=== PATIENT | female | born 1985 | race Caucasian/White ===

== ENCOUNTER 2025-02-27 23:17 | Inpatient (IN) | payer BC ==
[2025-02-27] MEDS ORDERED: MAGNESIUM HYDROXIDE 2,400 MG/30 ML CUP PO PRN (23:30)
[2025-02-27] MEDS ORDERED: LORazepam 2 MG/ML INJ IM PRN (23:30)
[2025-02-27] MEDS ORDERED: MAG HYDROX/AL HYDROX/SIMETH 355 ML BOTTLE PO PRN (23:30)
[2025-02-27] MEDS ORDERED: ACETAMINOPHEN TAB 325 MG TAB PO PRN (23:30)
[2025-02-27] MEDS ORDERED: HALOPERIDOL LACTATE 5 MG/ML 1 ML VIAL IM PRN (23:30)
[2025-02-27] MEDS ORDERED: haloperidoL 5 MG TAB PO PRN (23:30)
[2025-02-28] MEDS: LORazepam 1 MG TAB PO PRN (00:21)
[2025-02-28] MEDS: IBUPROFEN 600 MG TAB PO PRN (00:22)
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
[2025-02-28] MEDS: QUEtiapine 25 MG TAB PO STA (12:15)
[2025-02-28] MEDS: DULoxetine HCL 20 MG CAPSULE.DR PO SCH (12:15)
[2025-02-28] MEDS: QUEtiapine 50 MG TAB PO SCH (21:16)
--- NOTE | 2025-03-01 12:39 | P.PN ---
Progress Note - Text Progress Note Date: 03/01/25 Interval history: Patient was seen today for psychiatric follow-up. She claims that she is doing a bit better today,. Be less labile today, not tearful, endorsing improvement in anxiety today. Has been taking her medications did state that she felt fairly tired yesterday after taking the Seroquel. Claims that she is agreeable to continuing taking medications slept fairly last night about 5 or 6 hours. Claims that she has been in contact with her family however was fairly guarded about what they are talking well. She was also requesting to be placed back on her Fioricet and [place] and claims that she has the bottles in her possession, they will be sent to the pharmacy for clarification. Claims that her appetite is fair. Hygiene and grooming improving. Denying any auditory visual hallucinations denying any suicidal homicidal ideations intent or plan. MENTAL STATUS EXAM: General Appearance: Patient appears to be short in stature, thin wearing hospital gown, several within the wounds on her face and neck, stated age is alert, attempts to cooperate, more directable. Patient appears to have improving hygiene and grooming. Behavior: Patient is seated without any agitated behavior. Appears to more cooperative today. Jesse. Speech: Patient's speech is fluent and nonpressured. Hesitant soft tone, improving mildly Mood/Affect: Patient reports their mood is minimizing depression anxiety, improving mildly, affect is congruent and constricted. Suicidality/Homicidality: Patient denies having any homicidal ideation intent or plan. Denies any suicidal ideations intent or plan Perceptions: Patient denies any visual hallucinations and denies any auditory hallucinations Though content/process: More logical today. Goal oriented. Fairly concrete at times. Memory and concentration: AOX3, grossly intact for the purposes of this session. Judgment and insight: Poor, improving mildly IMPRESSIONS: Psychosis unspecified Generalized anxiety disorder PLAN: -Patient is admitted under involuntary status to MHU for stabilization of psychiatric symptoms and safety. Patient has not signed adult voluntary form and has not signed medication consent and is placed in patient's chart. -Medications : Seroquel 50 mg nightly for mood stabilization/psychosis/insomnia, increase Cymbalta 30 mg daily for mood/anxiety. -Ativan and Haldol PRN for agitation/aggression -NRT -not needed as patient does not smoke -SW on board for discharge planning. Encourage patient to participate in groups to work on coping skills. Will await deferral and court date.
[2025-03-01] MEDS: HYDROcodone/APAP 10-325MG 1 EACH TAB PO SCH (17:26)
[2025-03-01] MEDS: tiZANidine 4 MG TAB PO SCH (21:42)
[2025-03-01] MEDS: NORTRIPTYLINE 25 MG CAP PO SCH (21:43)
[2025-03-01] MEDS: Dextroamphetamine/Amphetamine [Adderall] 30 MG Tablet PO SCH (21:45)
[2025-03-02] MEDS: DULoxetine HCL 30 MG CAPSULE.DR PO SCH (08:19)
--- NOTE | 2025-03-02 13:54 | P.PN ---
Progress Note - Text Progress Note Date: 03/02/25 Interval history: Patient was seen today for psychiatric follow-up. She claims that she is doing a bit better today. She appears to be more cooperative today, not tearful. Claims that her anxiety mood is improving. She was restarted back on her pain medications and also her headache medications. We did speak about her Adderall being decreased down to just 1 tablet in the morning as it may be affecting her sleep. Claims that she slept fairly last night wants remain on the same dose to be a occasions. She was fairly focused on discharge, claims that she did speak to an electric motor tester this morning. Denies any issues with appetite. Hygiene and grooming improving. Denying any auditory visual hallucinations denying any suicidal homicidal ideations intent or plan. MENTAL STATUS EXAM: General Appearance: Patient appears to be short in stature, thin wearing hospital gown, several within the wounds on her face and neck, stated age is alert, attempts to cooperate, more directable. Patient appears to have improving hygiene and grooming. Behavior: Patient is seated without any agitated behavior. Appears to more cooperative today. [place]. Improving mildly Speech: Patient's speech is fluent and nonpressured, improving mildly Mood/Affect: Patient reports their mood is improving mildly, affect is congruent and constricted. Suicidality/Homicidality: Patient denies having any homicidal ideation intent or plan. Denies any suicidal ideations intent or plan Perceptions: Patient denies any visual hallucinations and denies any auditory hallucinations Though content/process: More logical today. Goal oriented. Fairly concrete at times. Memory and concentration: AOX3, grossly intact for the purposes of this session. Judgment and insight: Poor, improving mildly IMPRESSIONS: Psychosis unspecified Generalized anxiety disorder hx of adhd PLAN: -Patient is admitted under involuntary status to MHU for stabilization of psychiatric symptoms and safety. Patient has not signed adult voluntary form and has not signed medication consent and is placed in patient's chart. -Medications : Seroquel 50 mg nightly for mood stabilization/psychosis/insomnia, Cymbalta 30 mg daily for mood/anxiety. resumed pts adderall at a lower dose, 1 tab in the am for adhd. -Ativan and Haldol PRN for agitation/aggression -NRT -not needed as patient does not smoke -SW on board for discharge planning. Encourage patient to participate in groups to work on coping skills. Will await deferral and court date
[2025-03-02] MEDS ORDERED: cloNIDine HCL 0.1 MG TAB PO PRN (17:32)
--- NOTE | 2025-03-02 17:51 | P.MDCNMH ---
History of Present Illness H&P Date: 03/02/25 Chief Complaint: Medical evaluation, management 39-year-old woman with medical history of hypertension presented for mental health evaluation. Patient was noted to be hypertensive on vitals check. She reports some chronic numbness of her bilateral hands as a consequence of C5-C7 disc herniation, but otherwise able to ambulate without difficulty, has not noticed any additional weakness of extremities. Did not endorse headache, nausea, vomiting, abdominal pain, dysuria, chest pain, palpitations. Patient is hemodynamically stable, afebrile, blood pressure is 173/86, heart rate 123, 98% on room air. No labs to review, no imaging to review. Gen: In NAD, non-toxic HEENT: normocephalic, atraumatic, hearing acuity is intant, mucous membranes moist CVS: perfusing all extremities well, no pitting edema, tachycardic without murmurs Respiratory: symmetric chest expansion, no accessory muscle use, clear to auscultation bilaterally GI: soft, NTTP, ND, : no suprapubic tenderness, no CVA tenderness MSK/Derm: no rashes, cyanosis Neuro: CN II-XII intact, no motor weakness, Psych: cooperative, euthymic mood, judgment and insight is intact Assessment/plan: Hypertension, stage II -Initiate 5 mg daily of amlodipine, 20 mg daily of lisinopril - Urinalysis - CBC, basic metabolic panel, hepatic function panel, magnesium, TSH - Clonidine 0.1 mg 3 times daily as needed for SBP greater than 160 or DBP greater than 110 - Discontinue patient's dextro methamphetamine Thank for this consult, please reach out if there are any questions or concerns Past Medical History Past Medical History: Fibromyalgia, Hypertension, Skin Disorder Additional Past Medical History / Comment(s): Migraines, Cervical bulging discs, carpal tunnel, ovarian cysts, degenerative disc disease History of Any Multi-Drug Resistant Organisms: MRSA Date of last positivie culture/infection: 05/2024 MDRO Source:: patient Past Surgical History: No Surgical Hx Reported Past Anesthesia/Blood Transfusion Reactions: No Reported Reaction Past Psychological History: Anxiety Smoking Status: Never smoker Medications and Allergies Home Medications Medication Instructions Recorded Confirmed Type Buta/APAP/Caf/Cod 29-048-06-30 1 cap PO BID PRN 03/01/25 03/01/25 History [Fioricet w/Cod 11-567-54-30MG] Dextroamphetamine/Amphetamine 30 mg PO BID 03/01/25 03/01/25 History [Adderall] HYDROcodone/APAP 10-325MG [[place] 1 tab PO TID 03/01/25 03/01/25 History 10-325] Medroxyprogesterone Acetate 150 mg IM Q90D 03/01/25 03/01/25 History [Depo-Provera] Nortriptyline [Pamelor] 25 mg PO HS 03/01/25 03/01/25 History tiZANidine [Zanaflex] 4 mg PO HS 03/01/25 03/01/25 History Allergies Allergy/AdvReac Type Severity Reaction Status Date / Time Sulfa (Sulfonamide Allergy Unknown Verified 03/01/25 14:02 Antibiotics) Physical Exam Osteopathic Statement: *. No significant issues noted on an osteopathic str uctural exam other than those noted in the History and Physical/Consult. Vitals: Vital Signs Temp Pulse Resp BP Pulse Ox 03/02/25 15:54 123 H 16 173/86 03/02/25 09:00 97.9 F 129 H 16 145/99 98 03/01/25 21:00 97.8 F 109 H 16 149/115 99 03/01/25 18:30 168/118 Intake and Output 03/02/25 03/02/25 03/02/25 06:59 14:59 22:59 Other: Weight 49.9 kg Cranial Nerve Examination - Cranial Nerves Cranial Nerve II- Optic: Intact Cranial Nerve III- Oculomotor: Intact Cranial Nerve IV- Trochlear: Intact Cranial Nerve V- Trigeminal: Intact Cranial Nerve - Abducens: Intact Cranial Nerve VII- Facial: Intact Cranial Nerve VIII- Auditory: Intact Cranial Nerve IX- Glossopharyngeal: Intact Cranial Nerve X- Vagus: Intact Cranial Nerve XI- Accessory: Intact Cranial Nerve XII- Hypoglossal: Intact
[2025-03-02] MEDS: lisinopriL 20 MG TAB PO SCH (18:47)
[2025-03-02] MEDS: amLODIPine 5 MG TAB PO SCH (18:47)
[2025-03-02] MEDS: BUTA/APAP/CAF/COD 50-325-40-30 CAP PO PRN (18:50)
[2025-03-03 08:43] LABS: Basophils # (A) 0.04 10*3/uL (0.00-0.10); Basophils % (A) 0.8 %; Eosinophils # (A) 0.05 10*3/uL (0.04-0.35); HCT 39.7 % (37.2-46.3); HGB 12.9 g/dL (12.0-15.0); Lymphocytes # (A) 2.03 10*3/uL (0.90-5.00); Lymphocytes % (A) 41.6 %; MCH 28.2 pg (27.0-32.0); MCHC 32.5 g/dL (32.0-37.0); MCV 86.7 fL (80.0-97.0); Mean Platelet Volume 10.1 fL (9.5-12.2); Monocytes # (A) 0.31 10*3/uL (0.20-1.00); Monocytes % (A) 6.4 %; Neutrophils # (A) 2.44 10*3/uL (1.80-7.70); Platelet Count 278 10*3/uL (140-440); RBC 4.58 10*6/uL (4.10-5.20); RDW 15.3 % (11.5-14.5); WBC 4.88 10*3/uL (4.50-10.00)
[2025-03-03 08:57] LABS: ALT 23 U/L (4-34); AST 27 U/L (14-36); African American GFR (CKD) >90 (>60 ml/min/1.73 sqM); Albumin 3.9 g/dL (3.5-5.0); Alkaline Phosphatase 72 U/L (38-126); Anion Gap 7 mmol/L; Bilirubin, Delta 0.3 mg/dL (0.0-0.2); Bilirubin,Unconjugated 0.2 mg/dL (0.0-1.1); Blood Urea Nitrogen 12 mg/dL (7-17); Calcium 9.5 mg/dL (8.4-10.2); Carbon Dioxide 25 mmol/L (22-30); Chloride 107 mmol/L (98-107); Glucose 97 mg/dL (74-99); Magnesium 1.8 mg/dL (1.6-2.3); Non-African American GFR(CKD) >90 (>60 ml/min/1.73 sqM); Potassium 4.2 mmol/L (3.5-5.1); Sodium 139 mmol/L (137-145); Total Bilirubin 0.5 mg/dL (0.2-1.3); Total Protein 6.3 g/dL (6.3-8.2)
[2025-03-03] MEDS ORDERED: Dextroamphetamine/Amphetamine [Adderall] 30 MG Tablet PO SCH (09:00)
[2025-03-03 10:58] LABS: Appearance,Urine Cloudy (Clear); Bacteria,Urine Many /hpf; Bilirubin,Urine Negative (Negative); Blood,Urine Negative (Negative); Color,Urine Light Yellow; Glucose,Urine (UA) Negative (Negative); Ketones,Urine Negative (Negative); Leukocyte Esterase,Urine Trace (Negative); Mucus,Urine Moderate /hpf; Nitrite,Urine Negative (Negative); Protein,Urine Negative (Negative); Specific Gravity,Urine 1.016 (1.001-1.035); Squamous Epithelial Cell,Urine 12 /hpf (0-4); Urobilinogen,Urine <2.0 mg/dL (<2.0); WBC,Urine 6 /hpf (0-5)
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
[2025-03-03] MEDS: DEXTROAMPHETAMINE PO SCH (13:32)
[2025-03-03] MEDS: AMPHETAMINE PO SCH (13:32)
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
[2025-03-04] MEDS: DULoxetine HCL 30 MG CAPSULE.DR PO SCH (20:27)
[2025-03-04 23:16] VITALS: RESP 16
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
[2025-03-05 07:56] VITALS: BP 123/86; PULSE 105; TEMP 97.8
[2025-03-19] MEDS ORDERED: MEDROXYPROGESTERONE ACETATE 150 MG/ML IM SCH (09:00)
== END 2025-03-05 10:28 | disposition home or self-care (01) | DRG 885 ==
LOC: 3MHU 23:17
PROVIDERS: ADMIT Psychiatry & Neurology Psychiatry; ATTEND Psychiatry & Neurology Psychiatry
DX: F29 Unspecified psychosis not due to a substance or known physiological condition (principal); T76.11XA Adult physical abuse, suspected, initial encounter; F32.A Depression, unspecified; I10 Essential (primary) hypertension; F41.1 Generalized anxiety disorder; G47.00 Insomnia, unspecified; F90.9 Attention-deficit hyperactivity disorder, unspecified type; M79.7 Fibromyalgia; Z79.899 Other long term (current) drug therapy; Z88.2 Allergy status to sulfonamides; Z56.0 Unemployment, unspecified; Z63.0 Problems in relationship with spouse or partner
CPT/HCPCS: 80048; 80076; 81001; 83735; 84443; 85025